=== PATIENT | male | born 1965 | race Caucasian/White ===

== ENCOUNTER → 2023-11-14 06:11 | Day surgery (SDC) | payer BC, SELFPAY | LOC: GI 06:11 | PROVIDERS: ATTENDING PHYSICIAN Specialist | DX: Z12.11 Encounter for screening for malignant neoplasm of colon (principal); Z86.010 Personal history of colon polyps; D12.2 Benign neoplasm of ascending colon; D12.3 Benign neoplasm of transverse colon; D12.4 Benign neoplasm of descending colon | CPT/HCPCS: 45385; 88305 ==